=== PATIENT | male | born 1955 ===

== ENCOUNTER → 2025-10-28 11:56 | Outpatient (REF) | payer OTHER, SELFPAY | LOC: DHSLP 11:56 | PROVIDERS: ATTENDING PHYSICIAN Internal Medicine Critical Care Medicine; FAMILY PHYSICIAN Student in an Organized Health Care Education/Training Program | DX: G47.33 Obstructive sleep apnea (adult) (pediatric) (principal); G47.31 Primary central sleep apnea | CPT/HCPCS: 95811 ==